=== PATIENT | female | born 1975 | race African-American/Black ===

== ENCOUNTER 2017-10-29 21:53 | Emergency (ER) | payer SELFPAY ==
[2017-10-29] MEDS: AZITHROMYCIN 250 MG TABLET PO ONE (22:13)
--- NOTE | 2017-10-29 22:13 | ED Physician Documentation ---
General Adult - HISTORIAN Historian: patient - HPI Stated Complaint: cough/congestion/sinus pain Chief Complaint: General Adult Onset: days ago Timing: still present Severity: moderate Further Comments: yes (Pt is a 42 yo female with cough/congestion, sinus pain x 3 days. Pt has had malaise, no fever. Harsh cough. Ear pain; no sore throat.) - ROS CONST: other (malaise) EYES/ENT: other (sinus pain, ear pain b/l) CVS/RESP: cough (harsh cough) GI/: none MS/SKIN/LYMPH: none - PAST HX Past History: none Allergies/Adverse Reactions: Allergies Allergy/AdvReac Type Severity Reaction Status Date / Time No Known Allergies Allergy Verified 10/29/17 22:21 Home Medications: Ambulatory Orders Medication Instructions Recorded NK [NK] 10/29/17 - SOCIAL HX Smoking History: cigarettes - FAMILY HX Family History: No - VITAL SIGNS Vital Signs: Vital Signs Temp Pulse Resp BP Pulse Ox 126/98 03/15/16 13:57 - REVIEWED ASSESSMENTS Nursing Assessment Reviewed: Yes Vitals Reviewed: Yes Progress - Progress Progress: Rx Azithromycin 250 mg. Take one by mouth once daily for 4 days. Rx Flovent (110 mcg/spray) MDI. Take 2 puffs every 12 hrs for 3 days; then 1 puff every 12 hrs for 3 days; then 1 puff once daily for 3 days; then stop. Rinse mouth after using. Robitussin AC (with codeine). Take 10 ml (two teaspoons) by mouth every 4 to 6 hrs as needed for cough. Nasal washes 1 or 2 times daily as tolerated. ED Results Lab/Radiology - Orders Orders: ED Orders Category Date Time Status Azithromycin [Zithromax] Med 10/29/17 22:10 Discontinued 500 mg PO NOW ONE Budesonide [Pulmicort] Med 10/29/17 23:00 Ordered 0.5 mg NEB BID General Adult Physical Exam - PHYSICAL EXAM GENERAL APPEARANCE: mild distress EENT: ENT inspection normal, pharynx normal NECK: normal inspection, supple RESPIRATORY: wheezes, other (harsh cough) CVS: reg rate & rhythm, heart sounds normal ABDOMEN: soft, no organomegaly, normal bowel sounds SKIN: warm/dry, normal color EXTREMITIES: non-tender, normal range of motion, no evidence of injury, no edema NEURO: oriented X3, motor nml, sensation nml Discharge Clincal Impression: sinusitis/URI Referrals: Primary Doctor,No [Primary Care Provider] - Condition: Good Disposition: 01 HOME, SELF-CARE Decision to Admit: NO Decision Time: 22:36
[2017-10-29] MEDS ORDERED: BUDESONIDE 0.5MG/2ML AMPUL.NEB NEB ONE (22:15)
[2017-10-29] MEDS: BUDESONIDE 0.5MG/2ML AMPUL.NEB NEB SCH (22:15)
[2017-10-29 22:53] VITALS: BP 132/74
== END 2017-10-29 22:44 | disposition home or self-care (01) ==
LOC: ED 21:53
DX: J32.9 Chronic sinusitis, unspecified (principal); J06.9 Acute upper respiratory infection, unspecified
CPT/HCPCS: 94640; 99283; J7626